=== PATIENT | female | born 1975 ===

== ENCOUNTER → 2024-07-31 08:11 | Outpatient (CLI) | payer OTHER ==
[2024-07-31 09:17] LABS: HEMATOCRIT 40.9 % (36.0-45.00); HEMOGLOBIN 14.3 g/dL (12.0-15.00); MEAN CELL VOLUME 91.1 fL (80.00-100.00); MEAN CORPUSCULAR HEMOGLOBIN 31.7 pg (27.00-32.0); MEAN CORPUSCULAR HGB CONC 34.8 g/dl (32.0-36.0); PLATELET COUNT 238 K/uL (150-450); RED BLOOD COUNT 4.49 M/uL (4.00-6.00)
[2024-07-31 09:29] LABS: URINE APPEARANCE Clear; URINE BILIRRUBIN Negative (NEGATIVE); URINE BLOOD Large; URINE COLOR Yellow; URINE GLUCOSE Negative (NEGATIVE); URINE KETONE Negative (NEGATIVE); URINE LEUKOCYTE Small; URINE NITRATE Positive; URINE PROTEIN Trace (NEGATIVE); URINE UROBILINOGEN 0.2 E.U./dl
[2024-07-31 09:31] LABS: URINE BACTERIA > 9821.5 uL (0.0-1933); URINE CAST 0.15 uL (0.0-1.40); URINE EPITHELIAL CELLS 10.9 uL (0.0-38.8); URINE RBC 4556.7 uL (0.0-20.8); URINE WBC 59.9 uL (0.0-23.2)
[2024-07-31 09:33] LABS: PARTIAL THROMBOPLASTIN TIME 26.9 SECONDS (22.0-34.0); PROTHROMBIN TIME 10.9 SECONDS (9.0-11.5)
[2024-07-31 09:34] LABS: COL EPI 64 SECONDS (82-175)
[2024-07-31 10:09] LABS: ALBUMIN 3.9 gm/dL (3.4-5.0); BILIRUBIN TOTAL 0.75 mg/dL (0.3-1.2); CALCIUM 9.3 mg/dL (8.5-10.1); CREATININE SERUM 0.87 mg/dL (0.55-1.02); GFR 69.49; GLOBULINA 3.3 G/DL (2.4-3.5); POTASSIUM 3.48 mEq/L (3.5-5.1); TOTAL PROTEIN 7.2 gm/dL (6.4-8.2)
== END | disposition home or self-care (01) ==
LOC: LAB 08:11
PROVIDERS: ATTEND Orthopaedic Surgery
DX: D68.8 Other specified coagulation defects (principal); D64.9 Anemia, unspecified; E88.89 Other specified metabolic disorders; N39.0 Urinary tract infection, site not specified; Z22.322 Carrier or suspected carrier of Methicillin resistant Staphylococcus aureus; I10 Essential (primary) hypertension

== ENCOUNTER 2024-07-31 09:05 | Outpatient (CLI) | payer OTHER ==
[~2024-07-31] VITALS: Ht 160 cm; Wt 95.3 kg
[2024-07-31 09:51] VITALS: BP 116/80
== END 2024-07-31 09:07 | disposition home or self-care (01) ==
LOC: RAD 09:05
PROVIDERS: ATTEND Orthopaedic Surgery
DX: Z76.89 Persons encountering health services in other specified circumstances (principal); M25.511 Pain in right shoulder; M25.512 Pain in left shoulder